=== PATIENT | male | born 1985 | race Caucasian/White ===

== ENCOUNTER 2022-09-02 08:17 | Emergency (ER) | payer OTHER, SELFPAY ==
[2022-09-02 08:27] VITALS: BP 143/89; PULSE 90; RESP 16; TEMP 36.8; O2SAT 99
--- NOTE | 2022-09-02 08:54 | ED.URI ---
HPI - URI/Sore Throat General Chief Complaint: Upper Respiratory Infection Stated Complaint: sinus pressure/drainage,sore throat,headache Time Seen by Provider: 09/02/22 08:26 Source: patient and RN notes reviewed Mode of arrival: ambulatory Limitations: no limitations History of Present Illness HPI Narrative: Patient presents today complaining of a headache, sinus pressure, nasal congestion, sore throat, fatigue, and mild cough since yesterday. Denies fever or shortness of breath. Currently rates his pain 5/10 and has tried no [id number] treatment prior to arrival. 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 Related Data Home Medications Medication Instructions Recorded Confirmed mesalamine 1.2 gram tablet,delayed 4.8 gm PO DAILY 05/25/19 12/16/19 release (Lialda) multivitamin (Multiple Vitamins 1 tablet PO DAILY 05/25/19 12/16/19 tablet) omega-3 fatty acids 1,000 mg 1,000 mg PO DAILY 05/25/19 12/16/19 capsule (Fish Oil Concentrate) vitamin B complex 1 tablet PO DAILY 05/25/19 12/16/19 garlic 300 mg PO DAILY 12/11/19 12/16/19 lisinopril 30 mg tablet mg 09/02/22 Allergies Allergy/AdvReac Type Severity Reaction Status Date / Time No Known Allergies Allergy Verified 09/02/22 08:32 Review of Systems Review of Systems: CONSTITUTIONAL: Denies body aches, fever, chills, or sweats.+ fatigue EYES: Denies visual changes, redness, or discharge. ENT: Denies rhinorrhea, otalgia.+ congestion, sore throat, sinus pressure CARDIOVASCULAR: Denies chest pain, palpitations, or edema. RESPIRATORY: Denies dyspnea.+ cough GASTROINTESTINAL: Denies abdominal pain, nausea, vomiting, or diarrhea. GENITOURINARY: Denies dysuria or hematuria. SKIN: Denies rash, itching, or wounds. MUSCULOSKELETAL: Denies back pain, joint pain, or myalgia. NEUROLOGIC: Denies numbness, tingling, or weakness.+ headache PSYCH: Denies depression or anxiety. ON LICENSE OF [facility] Past Medical History Medical History (Updated 09/02/22 @ 08:58 by Yue De Jesus, [facility], ) Gastrointestinal bleeding Kidney stones (~1997) Surgical History Surgical History H/O eye surgery (~1993) Family History Family History Father Acute myocardial infarction Mother COPD (chronic obstructive pulmonary disease) Social History Social History Smoking status: Never smoker Second hand tobacco smoke exposure: No Alcohol intake: never Substance use: never Comments At time of signature, I have reviewed and agree with nursing past medical, surgical, social and family history unless otherwise noted. Please see nursing chart for further information. There is no relevant family history pertinent to the presenting complaint Exam Narrative: GENERAL: Well-appearing, well-nourished, and in no acute distress. HEAD: Normocephalic, atraumatic. EYES: EOMI. No redness or drainage. Conjunctivae normal. ENT: Mucous membranes pink and moist. Nares mildly congested. No rhinorrhea. Mild bilateral middle ear effusions without evidence of bacterial infection. Throat mildly erythematous without edema or exudate. Uvula midline. NECK: Normal AROM. Supple. No lymphadenopathy. CHEST: No respiratory distress. Clear to auscultation. HEART: Regular rate and rhythm. No murmur appreciated. Normal peripheral pulses. EXTREMITIES: Normal range of motion. No edema. SKIN: Warm, dry, no rash. Capillary refill normal. Normal skin turgor. NEURO: No focal deficits. Alert and oriented x3. Gait steady. PSYCH: Normal affect. No signs of depression or anxiety. Course Course Level of Care: Express Care Visit Vital Signs Vital signs: Vital Signs Temperature 98.2 F 09/02/22 08:27 Pulse Rate 90 09/02/22 08:27 Respiratory Rate 16 09/02/22 08:27 Blood Pressure 143/89 H
== END 2022-09-02 09:00 | disposition home or self-care (01) ==
PROVIDERS: Emergency Provider Nurse Practitioner; PCP Nurse Practitioner
DX: J06.9 Acute upper respiratory infection, unspecified (principal); I10 Essential (primary) hypertension
CPT/HCPCS: 87081; 87880; 99213; G0463